=== PATIENT | male | born 1955 | race Two or more races ===

== ENCOUNTER 2018-12-26 14:57 | Outpatient (CLI) | payer MEDICARE, BC ==
--- NOTE | 2018-12-26 15:43 | Diagnostic Imaging Report ---
Indication: Cough Comparison: None 2 views of the chest obtained. Findings: Reticular densities are prominent within the lungs. Heart size is normal. Hilar and mediastinal contours are normal. No pleural effusion seen. IMPRESSION: Prominence of the pulmonary interstitium nonspecific.
== END 2018-12-26 16:57 | disposition home or self-care (01) ==
LOC: RAD 14:57
DX: R05 Cough (principal)
CPT/HCPCS: 71046

== ENCOUNTER 2019-01-16 11:30 | Outpatient (CLI) | payer MEDICARE, BC ==
--- NOTE | 2019-01-16 15:26 | Diagnostic Imaging Report ---
Clinical Indication: Cough, history of COPD Technique: Spiral acquisitions obtained through the chest. No IV contrast utilized, per referring physician request. Multiplanar reconstructions generated. Total dose length product 810.21 mGycm. CTDIvol(s) 21.75 mGy. Dose reduction achieved using automated exposure control Comparison: Reference made to chest radiograph dated 12/26/2018 Findings: There is a 12 mm spiculated mass in the right upper lobe. There is a 5 mm subpleural nodule in the posterior medial right upper lobe, image 16 of series 5. 2 mm. A subpleural nodule is seen in the right upper lobe, image 26. A 5 mm nodule is seen in the inferior anterolateral right upper lobe, image 30. This is located within the minor fissure, however, and likely reflects an intrapleural lymph node. A subpleural nodule is seen in the left lower lobe laterally, 33/5 and another in the lateral left upper lobe, measures 18. Areas of hyperinflation, interstitial prominence and parenchymal fibrosis are seen in the superior upper lobes bilaterally. No infiltrates. No effusions. Normal heart size. There is minimal anterior wall pericardial thickening versus fluid. There is a small hiatal hernia. The esophagus is otherwise unremarkable. There is a somewhat enlarged precarinal node which measures 2.4 cm long axis dimension and 1.8 cm short axis. No other evidence of lymphadenopathy demonstrated. The included portion of the thyroid is unremarkable. No axillary or chest wall mass or adenopathy. The bones are unremarkable The included upper abdominal anatomy demonstrates multiple left renal cysts Impression: 12 mm right upper lobe spiculated mass. While possibly on the basis of scarring, the possibility of malignancy should be considered. Small nodules elsewhere, as detailed above. Further workup should be related to workup of the right upper lobe mass, but at a minimum 12 week short interval follow-up CT should be considered COPD changes, apparently limited to the bilateral lung apices Small hiatal hernia Enlarged precarinal node, nonspecific as could be reactive, neoplastic, or could be baseline for this patient Incidental finding multiple left renal cysts The CT scanner at [facility] is accredited by the [employer] and the scans are performed using protocols designed to limit radiation exposure to as low as reasonably achievable to attain images of sufficient resolution adequate for diagnostic evaluation.
--- NOTE | 2019-01-16 17:21 | Diagnostic Imaging Report ---
Indication: Left foot pain, trauma Technique: 3 views left foot Comparison: none Findings: No acute fractures. No dislocations. The joint spaces are preserved. The bones are osteoporotic Impression: No acute process
== END 2019-01-16 13:30 | disposition home or self-care (01) ==
LOC: CAT 11:30
DX: R05 Cough (principal); J44.9 Chronic obstructive pulmonary disease, unspecified; N20.0 Calculus of kidney; K44.9 Diaphragmatic hernia without obstruction or gangrene; M25.572 Pain in left ankle and joints of left foot
CPT/HCPCS: 71250